=== PATIENT | male | born 1935 | race Caucasian/White ===

== ENCOUNTER 2017-01-31 08:41 | Emergency (ER) | payer MEDICARE, BC ==
--- NOTE | 2017-01-31 09:15 | EDM.PDOC ---
ED HPI GENERAL MEDICAL PROBLEM - General Chief Complaint: Cardiovascular Problem Stated Complaint: BP Time Seen by Provider: 01/31/17 08:47 Source of Information: Reports: Patient, Family, RN, RN Notes Reviewed History Limitations: Reports: No Limitations - History of Present Illness INITIAL COMMENTS - FREE TEXT/NARRATIVE: Patient presents to the ED at [facility] with concerns of elevated blood pressure. Patient states he was feeling quite dizzy this AM so he checked his blood pressure at home. Reading ranged 170's-190's. Patient states his baseline blood pressures run 130's/60's. He is currently not taking any prescription medications for blood pressure. Patient states his last yearly physical was November 2016; blood pressure at that time was at baseline. He states his only symptom is dizziness. He takes his prescription medications as directed and dose not miss any doses. Patient denies any headache. No chest pain. No SOB. No visual field disturbances. No numbness, tingling, paresthesia of any extremity. Patient states he was out recently helping family members combine wheat and feels "stuffy" and congested. He states he has not taken any OTC medications for his congestion. Onset: Today - Related Data Allergies Allergy/AdvReac Type Severity Reaction Status Date / Time No Known Allergies Allergy Verified 01/31/17 09:00 Home Meds: Home Meds Ferrous Sulfate 325 mg PO DAILY 01/31/17 [History] Levothyroxine [Levothyroxine] 112 mcg PO DAILY 01/31/17 [History] Past Medical History Endocrine/Metabolic History: Reports: Hypothyroidism Social & Family History - Family History Family Medical History: Noncontributory - Tobacco Use Smoking Status *Q: Unknown Ever Smoked - Caffeine Use Caffeine Use: Reports: None - Alcohol Use Alcohol Use History: No Alcohol Use in Last Twelve Months: No - Recreational Drug Use Recreational Drug Use: No Drug Use in Last 12 Months: No ED ROS GENERAL - Review of Systems Review Of Systems: See Below Constitutional: Denies: Fever, Chills, Weakness Respiratory: Denies: Shortness of Breath, Cough Cardiovascular: Reports: Blood Pressure Problem, Lightheadedness. Denies: Chest Pain, Edema, Palpitations GI/Abdominal: Denies: Abdominal Pain, Nausea, Vomiting Skin: Reports: No Symptoms Neurological: Reports: Dizziness. Denies: Headache, Numbness, Paresthesia, Tingling ED EXAM, GENERAL - Physical Exam Exam: See Below Exam Limited By: No Limitations General Appearance: Alert, No Apparent Distress Respiratory/Chest: No Respiratory Distress, Lungs Clear, Normal Breath Sounds Cardiovascular: Normal Peripheral Pulses, Regular Rate, Rhythm, No Murmur Peripheral Pulses: 2+: Radial (L), Radial (R) GI/Abdominal: Normal Bowel Sounds, Soft, Non-Tender Extremities: Normal Inspection Neurological: Alert, Oriented Skin Exam: Warm, Dry, Intact, Normal Color, No Rash Course - Vital Signs Last Recorded V/S: Last Vital Signs Temp 36.1 C 01/31/17 08:41 Pulse 75 01/31/17 08:41 Resp 18 01/31/17 08:41 BP 175/91 H 01/31/17 08:41 Pulse Ox 95 01/31/17 08:41 - Orders/Labs/Meds Labs: Laboratory Tests 01/31/17 01/31/17 Range/Units 09:21 09:21 WBC 4.3 (4.0-10.0) x10^3/uL RBC 4.70 (4.5-6.0) x10^6/uL Hgb 13.9 L (14.0-18.0) g/dL Hct 42.5 (40.0-52.0) % MCV 90.4 (78.0-93.0) fL MCH 29.6 (26.0-32.0) pg MCHC 32.7 (32.0-36.0) g/dL RDW Coeff of Barbara 14.0 (10.0-15.0) % Plt Count 156 (130-400) x10^3/uL Neut % (Auto) 78.2 (50.0-80.0) % Lymph % (Auto) 13.9 L (25.0-50.0) % [place] % (Auto) 6.5 (2.0-11.0) % Eos % (Auto) 0.9 (0.0-4.0) % Baso % (Auto) 0.5 (0.2-1.2) % Sodium 142 (136-145) mmol/L Potassium 4.5 (3.5-5.1) mmol/L Chloride 106 (98-107) mmol/L Carbon Dioxide 31 (21-32) mmol/L BUN 16 (7-18) mg/dL Creatinine 0.9 (0.70-1.30) mg/dL Est Cr Clr Drug Dosing TNP Estimated GFR (MDRD) > 60 Glucose 146 H (74-106) mg/dL Calcium 8.9 (8.5-10.1) mg/dL TSH, Ultra Sensitive 3.805 H (0.358-3.74) uIU/mL Departure - Departure Time of Disposition: 10:07 Disposition: Home, Self-Care 01 Reason for Transfer *Q: Other Condition: Good Clinical Impression: Elevated blood-pressure reading without diagnosis of hypertension, Hypothyroidism (acquired) Instructions: Hypertension Referrals: Codie Colvin MD [Physician] - Forms: ED Department Discharge Additional Instructions: 1. Stay well hydrated and rest 2. Avoid salty foods; salt can raise your blood pressure 3. If you start having worsening symptoms of high blood pressure, return for further workup 4. Call Dr. Colvin on Thursday and schedule a follow up appointment for your blood pressure - Problem List Review Problem List Initiated/Reviewed/Updated: Yes
[2017-01-31 09:55] LABS: CHLORIDE,CL 106 mmol/L (98-107); SODIUM,NA 142 mmol/L (136-145)
== END 2017-01-31 10:21 | disposition home or self-care (01) ==
LOC: VM.ED 08:41
DX: R03.0 Elevated blood-pressure reading, without diagnosis of hypertension (principal); E03.9 Hypothyroidism, unspecified; Z79.899 Other long term (current) drug therapy
CPT/HCPCS: 36415; 80048; 84443; 85025; 99282-GF; 99283

== ENCOUNTER 2021-07-08 07:08 | Emergency (ER) | payer MEDICARE, BC ==
[2021-07-08 08:18] LABS: PTT,PARTIAL THROMBOPLSTIN TIME 31.5 SEC (25.6-32.8)
[2021-07-08 08:28] LABS: ANION GAP 9.6 mmol/L (5-15); CHLORIDE,CL 103 mmol/L (98-107); SODIUM,NA 144 mmol/L (136-145)
[2021-07-08 09:14] LABS: CORONAVIRUS COVID-19 NAA NEGATIVE (NEGATIVE); RESPIRATORY SYNCYTIAL VIR NAA NEGATIVE (NEGATIVE)
== END 2021-07-08 09:21 | disposition home or self-care (01) ==
LOC: VM.ED 07:08
DX: I50.22 Chronic systolic (congestive) heart failure (principal); E03.9 Hypothyroidism, unspecified; I48.91 Unspecified atrial fibrillation; Z79.899 Other long term (current) drug therapy; Z20.822 Contact with and (suspected) exposure to COVID-19
CPT/HCPCS: 0241U; 36415; 71045; 80053; 83735; 83880; 84100; 84484; 85025; 85610; 85730; 93005; 99284; 99285-25

== ENCOUNTER 2021-09-16 13:31 | Inpatient (IN) | payer MEDICARE, BC ==
[2021-09-16] MEDS ORDERED: Mirtazapine 15 MG Tab PO PRN (17:00)
[2021-09-16] MEDS: Chlorhexidine Gluconate 0.12% Oral Rinse 15 ML Cup PO SCH (19:30)
[2021-09-16] MEDS: Potassium Bicarbonate/Cit Ac 10 MEQ Effervescent Tab PO SCH (19:30)
[2021-09-17] MEDS: Hypromellose 0.3% Ophth Soln 15 ML Bottle EYEBOTH PRN (03:38)
[2021-09-17] MEDS: Levothyroxine 125 MCG Tab PO SCH (06:27)
[2021-09-17] MEDS: Chlorhexidine Gluconate 0.12% Oral Rinse 15 ML Cup PO SCH ×2 (07:11→19:22)
[2021-09-17] MEDS: Amiodarone 200 MG Tab PO SCH (07:11)
[2021-09-17] MEDS: Furosemide 40 MG Tab PO SCH (07:11)
[2021-09-17] MEDS: Ferrous Sulfate 325 MG Tab PO SCH (07:11)
[2021-09-17] MEDS: Rivaroxaban 10 MG Tab PO SCH (07:11)
[2021-09-17] MEDS: Metoprolol Succinate 25 MG Tab.ER PO SCH (07:12)
[2021-09-17] MEDS: Potassium Bicarbonate/Cit Ac 10 MEQ Effervescent Tab PO SCH ×3 (07:13→19:21)
[2021-09-18] MEDS: Levothyroxine 125 MCG Tab PO SCH (06:01)
[2021-09-18] MEDS: Metoprolol Succinate 25 MG Tab.ER PO SCH (07:58)
[2021-09-18] MEDS: Potassium Bicarbonate/Cit Ac 10 MEQ Effervescent Tab PO SCH ×3 (07:58→19:21)
[2021-09-18] MEDS: Ferrous Sulfate 325 MG Tab PO SCH (07:59)
[2021-09-18] MEDS: Amiodarone 200 MG Tab PO SCH (07:59)
[2021-09-18] MEDS: Rivaroxaban 10 MG Tab PO SCH (08:00)
[2021-09-18] MEDS: Furosemide 40 MG Tab PO SCH (08:00)
[2021-09-18] MEDS: Hypromellose 0.3% Ophth Soln 15 ML Bottle EYEBOTH PRN (08:01)
[2021-09-18] MEDS: Chlorhexidine Gluconate 0.12% Oral Rinse 15 ML Cup PO SCH ×2 (08:02→19:21)
[2021-09-19] MEDS: Levothyroxine 125 MCG Tab PO SCH (06:11)
[2021-09-19] MEDS: Hypromellose 0.3% Ophth Soln 15 ML Bottle EYEBOTH PRN (06:50)
[2021-09-19] MEDS: Potassium Bicarbonate/Cit Ac 10 MEQ Effervescent Tab PO SCH ×3 (10:28→19:48)
[2021-09-19] MEDS: Metoprolol Succinate 25 MG Tab.ER PO SCH (10:29)
[2021-09-19] MEDS: Chlorhexidine Gluconate 0.12% Oral Rinse 15 ML Cup PO SCH ×2 (10:29→19:48)
[2021-09-19] MEDS: Amiodarone 200 MG Tab PO SCH (10:29)
[2021-09-19] MEDS: Ferrous Sulfate 325 MG Tab PO SCH (10:29)
[2021-09-19] MEDS: Furosemide 40 MG Tab PO SCH (10:30)
[2021-09-19] MEDS: Rivaroxaban 10 MG Tab PO SCH (10:31)
[2021-09-20] MEDS: Levothyroxine 125 MCG Tab PO SCH (06:24)
[2021-09-20] MEDS: Amiodarone 200 MG Tab PO SCH (07:47)
[2021-09-20] MEDS: Metoprolol Succinate 25 MG Tab.ER PO SCH (07:47)
[2021-09-20] MEDS: Rivaroxaban 10 MG Tab PO SCH (07:47)
[2021-09-20] MEDS: Potassium Bicarbonate/Cit Ac 10 MEQ Effervescent Tab PO SCH ×2 (07:47→11:30)
[2021-09-20] MEDS: Furosemide 40 MG Tab PO SCH (07:47)
[2021-09-20] MEDS: Ferrous Sulfate 325 MG Tab PO SCH (07:47)
[2021-09-20] MEDS: Chlorhexidine Gluconate 0.12% Oral Rinse 15 ML Cup PO SCH (07:51)
== END 2021-09-20 12:05 | disposition home or self-care (01) | DRG 948 ==
LOC: VM.MS 13:31
PROVIDERS: ADMIT Family Medicine; ATTEND Family Medicine
DX: R53.81 Other malaise (principal); I42.8 Other cardiomyopathies; I50.42 Chronic combined systolic (congestive) and diastolic (congestive) heart failure; I11.0 Hypertensive heart disease with heart failure; I48.91 Unspecified atrial fibrillation; E03.9 Hypothyroidism, unspecified; I34.0 Nonrheumatic mitral (valve) insufficiency; D64.9 Anemia, unspecified; E87.6 Hypokalemia; C06.9 Malignant neoplasm of mouth, unspecified; E83.42 Hypomagnesemia; Z79.890 Hormone replacement therapy; Z79.899 Other long term (current) drug therapy
CPT/HCPCS: 97110-GP; 97116-GP; A9270-GY

== ENCOUNTER 2021-09-26 17:13 | Observation (INO) | payer MEDICARE, BC ==
[2021-09-26 18:12] LABS: ANION GAP 8.9 mmol/L (5-15); CHLORIDE,CL 103 mmol/L (98-107); SODIUM,NA 143 mmol/L (136-145)
[2021-09-26 18:40] LABS: CORONAVIRUS COVID-19 NAA NEGATIVE (NEGATIVE)
[2021-09-26 18:41] LABS: RESPIRATORY SYNCYTIAL VIR NAA NEGATIVE (NEGATIVE)
[2021-09-26] MEDS ORDERED: Hypromellose 0.3% Ophth Soln 15 ML Bottle EYEBOTH PRN (19:56)
[2021-09-26] MEDS ORDERED: Mirtazapine 15 MG Tab PO PRN (19:56)
[2021-09-26] MEDS ORDERED: Potassium Chloride 20 MEQ Tab.ER PO SCH (20:00)
[2021-09-26] MEDS: Amiodarone 200 MG Tab PO SCH (20:33)
[2021-09-26] MEDS: Chlorhexidine Gluconate 0.12% Oral Rinse 15 ML Cup PO SCH (20:34)
[2021-09-27] MEDS: Sodium Chloride 0.9% 10 ML Syringe FLUSH PRN ×2 (06:11→06:12)
[2021-09-27 06:56] LABS: CHLORIDE,CL 105 mmol/L (98-107); SODIUM,NA 145 mmol/L (136-145)
[2021-09-27] MEDS ORDERED: Levothyroxine 125 MCG Tab PO SCH (07:00)
[2021-09-27 07:01] LABS: ANION GAP 9.7 mmol/L (5-15)
[2021-09-27] MEDS ORDERED: Ferrous Sulfate 325 MG Tab PO SCH (08:00)
[2021-09-27] MEDS ORDERED: Metoprolol Succinate 25 MG Tab.ER PO SCH (08:00)
[2021-09-27] MEDS ORDERED: Potassium Bicarbonate/Cit Ac 10 MEQ Effervescent Tab PO SCH (08:00)
[2021-09-27] MEDS ORDERED: Rivaroxaban 10 MG Tab PO SCH (08:00)
[2021-09-27] MEDS ORDERED: Furosemide 40 MG Tab PO SCH (08:00)
[2021-09-27] MEDS: Chlorhexidine Gluconate 0.12% Oral Rinse 15 ML Cup PO SCH (08:30)
[2021-09-27] MEDS ORDERED: Metoprolol Succinate 25 MG Tab.ER PO ONE (08:30)
[2021-09-27] MEDS: Amiodarone 200 MG Tab PO SCH (08:31)
[2021-09-28] MEDS ORDERED: Levothyroxine 75 MCG Tab PO SCH (07:00)
[2021-09-28] MEDS ORDERED: Levothyroxine 125 MCG Tab PO SCH (07:00)
[2021-09-28] MEDS ORDERED: Metoprolol Succinate 25 MG Tab.ER PO SCH (08:00)
== END 2021-09-27 09:33 | disposition swing bed (61) ==
LOC: VM.ED 17:13 → VM.MS 18:57
PROVIDERS: ADMIT Physician Assistant; ATTEND Family Medicine
DX: R53.1 Weakness (principal); R53.81 Other malaise; E43 Unspecified severe protein-calorie malnutrition; K59.00 Constipation, unspecified; E87.6 Hypokalemia; I11.0 Hypertensive heart disease with heart failure; E83.42 Hypomagnesemia; I50.43 Acute on chronic combined systolic (congestive) and diastolic (congestive) heart failure; C61 Malignant neoplasm of prostate; I47.2 Ventricular tachycardia; D64.9 Anemia, unspecified; F41.9 Anxiety disorder, unspecified; E03.9 Hypothyroidism, unspecified; I48.91 Unspecified atrial fibrillation; E78.00 Pure hypercholesterolemia, unspecified; Z98.890 Other specified postprocedural states; Z79.890 Hormone replacement therapy; Z79.01 Long term (current) use of anticoagulants; Z79.899 Other long term (current) drug therapy; Z20.822 Contact with and (suspected) exposure to COVID-19
CPT/HCPCS: 0241U; 36415; 70450; 71045; 80048; 80053; 83605; 83735; 83880; 84100; 84436; 84443; 84481; 84484; 85025; 85610; 85730; 87040; 93005; 99285-25; A9270-GY; G0378; J3490

== ENCOUNTER 2021-09-27 09:25 | Inpatient (IN) | payer MEDICARE, BC ==
[2021-09-27] MEDS ORDERED: Mirtazapine 15 MG Tab PO PRN (09:41)
[2021-09-27] MEDS ORDERED: Sodium Chloride 0.9% 10 ML Syringe FLUSH PRN ×2 (09:41)
[2021-09-27] MEDS: Potassium Bicarbonate/Cit Ac 10 MEQ Effervescent Tab PO SCH ×2 (13:43→17:56)
[2021-09-27] MEDS: Chlorhexidine Gluconate 0.12% Oral Rinse 15 ML Cup PO SCH (19:24)
[2021-09-28] MEDS: Levothyroxine 125 MCG Tab PO SCH (06:06)
[2021-09-28] MEDS: Hypromellose 0.3% Ophth Soln 15 ML Bottle EYEBOTH PRN (06:20)
[2021-09-28] MEDS: Potassium Bicarbonate/Cit Ac 10 MEQ Effervescent Tab PO SCH ×3 (08:20→18:19)
[2021-09-28] MEDS: Furosemide 40 MG Tab PO SCH (08:21)
[2021-09-28] MEDS: Metoprolol Succinate 25 MG Tab.ER PO SCH (08:21)
[2021-09-28] MEDS: Chlorhexidine Gluconate 0.12% Oral Rinse 15 ML Cup PO SCH ×2 (08:21→19:33)
[2021-09-28] MEDS: Ferrous Sulfate 325 MG Tab PO SCH (08:22)
[2021-09-28] MEDS: Rivaroxaban 10 MG Tab PO SCH (08:22)
[2021-09-28] MEDS: Amiodarone 200 MG Tab PO SCH (08:22)
[2021-09-29] MEDS: Levothyroxine 125 MCG Tab PO SCH (06:12)
[2021-09-29] MEDS: Potassium Bicarbonate/Cit Ac 10 MEQ Effervescent Tab PO SCH ×3 (08:08→19:00)
[2021-09-29] MEDS: Amiodarone 200 MG Tab PO SCH (08:12)
[2021-09-29] MEDS: Rivaroxaban 10 MG Tab PO SCH (08:12)
[2021-09-29] MEDS: Furosemide 40 MG Tab PO SCH (08:12)
[2021-09-29] MEDS: Ferrous Sulfate 325 MG Tab PO SCH (08:12)
[2021-09-29] MEDS: Metoprolol Succinate 25 MG Tab.ER PO SCH (08:12)
[2021-09-29] MEDS: Chlorhexidine Gluconate 0.12% Oral Rinse 15 ML Cup PO SCH ×2 (08:13→19:00)
[2021-09-30] MEDS: Levothyroxine 125 MCG Tab PO SCH (06:01)
[2021-09-30] MEDS: Amiodarone 200 MG Tab PO SCH (07:59)
[2021-09-30] MEDS: Potassium Bicarbonate/Cit Ac 10 MEQ Effervescent Tab PO SCH ×3 (07:59→18:40)
[2021-09-30] MEDS: Ferrous Sulfate 325 MG Tab PO SCH (07:59)
[2021-09-30] MEDS: Rivaroxaban 10 MG Tab PO SCH (07:59)
[2021-09-30] MEDS: Metoprolol Succinate 25 MG Tab.ER PO SCH (07:59)
[2021-09-30] MEDS: Chlorhexidine Gluconate 0.12% Oral Rinse 15 ML Cup PO SCH ×2 (08:00→19:46)
[2021-09-30] MEDS: Furosemide 40 MG Tab PO SCH (08:00)
[2021-10-01] MEDS: Levothyroxine 125 MCG Tab PO SCH (06:01)
[2021-10-01] MEDS: Hypromellose 0.3% Ophth Soln 15 ML Bottle EYEBOTH PRN (08:48)
[2021-10-01] MEDS: Potassium Bicarbonate/Cit Ac 10 MEQ Effervescent Tab PO SCH ×3 (08:48→18:30)
[2021-10-01] MEDS: Chlorhexidine Gluconate 0.12% Oral Rinse 15 ML Cup PO SCH ×2 (08:48→18:59)
[2021-10-01] MEDS: Furosemide 40 MG Tab PO SCH (08:48)
[2021-10-01] MEDS: Metoprolol Succinate 25 MG Tab.ER PO SCH (08:48)
[2021-10-01] MEDS: Rivaroxaban 10 MG Tab PO SCH (08:49)
[2021-10-01] MEDS: Amiodarone 200 MG Tab PO SCH (08:49)
[2021-10-01] MEDS: Ferrous Sulfate 325 MG Tab PO SCH (08:49)
[2021-10-02] MEDS: Levothyroxine 125 MCG Tab PO SCH (06:44)
[2021-10-02] MEDS: Chlorhexidine Gluconate 0.12% Oral Rinse 15 ML Cup PO SCH ×2 (08:12→20:05)
[2021-10-02] MEDS: Metoprolol Succinate 25 MG Tab.ER PO SCH (08:12)
[2021-10-02] MEDS: Potassium Bicarbonate/Cit Ac 10 MEQ Effervescent Tab PO SCH ×3 (08:12→17:55)
[2021-10-02] MEDS: Ferrous Sulfate 325 MG Tab PO SCH (08:13)
[2021-10-02] MEDS: Furosemide 40 MG Tab PO SCH (08:13)
[2021-10-02] MEDS: Amiodarone 200 MG Tab PO SCH (08:13)
[2021-10-02] MEDS: Rivaroxaban 10 MG Tab PO SCH (08:13)
[2021-10-03] MEDS: Levothyroxine 125 MCG Tab PO SCH (06:50)
[2021-10-03] MEDS: Melatonin 3 MG Tab PO SCH (06:56)
[2021-10-03] MEDS: Ferrous Sulfate 325 MG Tab PO SCH (08:41)
[2021-10-03] MEDS: Amiodarone 200 MG Tab PO SCH (08:41)
[2021-10-03] MEDS: Rivaroxaban 10 MG Tab PO SCH (08:41)
[2021-10-03] MEDS: Furosemide 40 MG Tab PO SCH (08:41)
[2021-10-03] MEDS: Potassium Bicarbonate/Cit Ac 10 MEQ Effervescent Tab PO SCH ×3 (08:41→18:11)
[2021-10-03] MEDS: Metoprolol Succinate 25 MG Tab.ER PO SCH (08:42)
[2021-10-03] MEDS: Chlorhexidine Gluconate 0.12% Oral Rinse 15 ML Cup PO SCH ×2 (08:42→20:55)
[2021-10-04] MEDS: Melatonin 3 MG Tab PO SCH ×2 (07:01→19:49)
[2021-10-04] MEDS: Levothyroxine 125 MCG Tab PO SCH (07:02)
[2021-10-04] MEDS: Potassium Bicarbonate/Cit Ac 10 MEQ Effervescent Tab PO SCH ×3 (08:36→18:44)
[2021-10-04] MEDS: Furosemide 40 MG Tab PO SCH (08:37)
[2021-10-04] MEDS: Metoprolol Succinate 25 MG Tab.ER PO SCH (08:37)
[2021-10-04] MEDS: Rivaroxaban 10 MG Tab PO SCH (08:37)
[2021-10-04] MEDS: Amiodarone 200 MG Tab PO SCH (08:37)
[2021-10-04] MEDS: Ferrous Sulfate 325 MG Tab PO SCH (08:37)
[2021-10-04] MEDS: Chlorhexidine Gluconate 0.12% Oral Rinse 15 ML Cup PO SCH ×2 (08:38→19:49)
[2021-10-05] MEDS: Levothyroxine 125 MCG Tab PO SCH (06:15)
[2021-10-05] MEDS: Rivaroxaban 10 MG Tab PO SCH (08:42)
[2021-10-05] MEDS: Potassium Bicarbonate/Cit Ac 10 MEQ Effervescent Tab PO SCH ×3 (08:42→18:53)
[2021-10-05] MEDS: Chlorhexidine Gluconate 0.12% Oral Rinse 15 ML Cup PO SCH ×2 (08:42→19:11)
[2021-10-05] MEDS: Metoprolol Succinate 25 MG Tab.ER PO SCH (08:43)
[2021-10-05] MEDS: Furosemide 40 MG Tab PO SCH (08:43)
[2021-10-05] MEDS: Amiodarone 200 MG Tab PO SCH (08:43)
[2021-10-05] MEDS: Ferrous Sulfate 325 MG Tab PO SCH (08:43)
[2021-10-05] MEDS: Melatonin 3 MG Tab PO SCH (19:11)
[2021-10-06] MEDS: Levothyroxine 125 MCG Tab PO SCH (06:51)
[2021-10-06] MEDS: Chlorhexidine Gluconate 0.12% Oral Rinse 15 ML Cup PO SCH ×2 (08:06→19:36)
[2021-10-06] MEDS: Rivaroxaban 10 MG Tab PO SCH (08:06)
[2021-10-06] MEDS: Metoprolol Succinate 25 MG Tab.ER PO SCH (08:06)
[2021-10-06] MEDS: Potassium Bicarbonate/Cit Ac 10 MEQ Effervescent Tab PO SCH ×3 (08:06→18:40)
[2021-10-06] MEDS: Furosemide 40 MG Tab PO SCH (08:06)
[2021-10-06] MEDS: Amiodarone 200 MG Tab PO SCH (08:07)
[2021-10-06] MEDS: Ferrous Sulfate 325 MG Tab PO SCH (08:07)
[2021-10-06] MEDS: Melatonin 3 MG Tab PO SCH (19:37)
[2021-10-07] MEDS: Levothyroxine 125 MCG Tab PO SCH (06:04)
[2021-10-07] MEDS: Potassium Bicarbonate/Cit Ac 10 MEQ Effervescent Tab PO SCH ×13 (07:54→19:30)
[2021-10-07] MEDS: Metoprolol Succinate 25 MG Tab.ER PO SCH ×6 (07:55→16:27)
[2021-10-07] MEDS: Furosemide 40 MG Tab PO SCH ×8 (07:55→16:28)
[2021-10-07] MEDS: Amiodarone 200 MG Tab PO SCH ×8 (07:55→16:29)
[2021-10-07] MEDS: Rivaroxaban 10 MG Tab PO SCH ×7 (07:55→16:27)
[2021-10-07] MEDS: Chlorhexidine Gluconate 0.12% Oral Rinse 15 ML Cup PO SCH ×9 (07:55→22:24)
[2021-10-07] MEDS: Ferrous Sulfate 325 MG Tab PO SCH ×6 (07:56→16:28)
[2021-10-07] MEDS: Melatonin 3 MG Tab PO SCH ×4 (14:50→22:24)
[2021-10-07] MEDS ORDERED: Bisacodyl 10 MG Supp RECTAL ONE (15:22)
[2021-10-07] MEDS ORDERED: Polyethylene Glycol 3350 Powder 17 GM Packet PO ONE (17:42)
[2021-10-08 07:10] LABS: CHLORIDE,CL 103 mmol/L (98-107); SODIUM,NA 144 mmol/L (136-145)
[2021-10-08 07:11] LABS: ANION GAP 7.6 mmol/L (5-15)
[2021-10-08] MEDS: Levothyroxine 125 MCG Tab PO SCH (07:35)
[2021-10-08] MEDS: Rivaroxaban 10 MG Tab PO SCH (08:18)
[2021-10-08] MEDS: Potassium Bicarbonate/Cit Ac 10 MEQ Effervescent Tab PO SCH ×3 (08:23→17:30)
[2021-10-08] MEDS: Chlorhexidine Gluconate 0.12% Oral Rinse 15 ML Cup PO SCH ×2 (08:24→21:55)
[2021-10-08] MEDS: Ferrous Sulfate 325 MG Tab PO SCH (08:24)
[2021-10-08] MEDS: Metoprolol Succinate 25 MG Tab.ER PO SCH (10:09)
[2021-10-08] MEDS: Amiodarone 200 MG Tab PO SCH (10:10)
[2021-10-08] MEDS: Furosemide 40 MG Tab PO SCH (10:10)
[2021-10-08] MEDS: Melatonin 3 MG Tab PO SCH (21:55)
[2021-10-09] MEDS: Levothyroxine 125 MCG Tab PO SCH (06:41)
[2021-10-09] MEDS: Chlorhexidine Gluconate 0.12% Oral Rinse 15 ML Cup PO SCH (09:27)
[2021-10-09] MEDS: Amiodarone 200 MG Tab PO SCH (09:27)
[2021-10-09] MEDS: Furosemide 40 MG Tab PO SCH (09:27)
[2021-10-09] MEDS: Potassium Bicarbonate/Cit Ac 10 MEQ Effervescent Tab PO SCH ×3 (09:27→21:03)
[2021-10-09] MEDS: Rivaroxaban 10 MG Tab PO SCH (09:28)
[2021-10-09] MEDS: Ferrous Sulfate 325 MG Tab PO SCH (09:28)
[2021-10-09] MEDS: Metoprolol Succinate 25 MG Tab.ER PO SCH (09:28)
[2021-10-10] MEDS: Melatonin 3 MG Tab PO SCH ×3 (05:54→21:46)
[2021-10-10] MEDS: Chlorhexidine Gluconate 0.12% Oral Rinse 15 ML Cup PO SCH ×4 (05:54→21:46)
[2021-10-10] MEDS: Levothyroxine 125 MCG Tab PO SCH (06:44)
[2021-10-10] MEDS: Furosemide 40 MG Tab PO SCH (08:19)
[2021-10-10] MEDS: Ferrous Sulfate 325 MG Tab PO SCH (08:20)
[2021-10-10] MEDS: Rivaroxaban 10 MG Tab PO SCH (08:20)
[2021-10-10] MEDS: Metoprolol Succinate 25 MG Tab.ER PO SCH (08:20)
[2021-10-10] MEDS: Amiodarone 200 MG Tab PO SCH (08:20)
[2021-10-10] MEDS: Hypromellose 0.3% Ophth Soln 15 ML Bottle EYEBOTH PRN (08:21)
[2021-10-10] MEDS: Potassium Bicarbonate/Cit Ac 10 MEQ Effervescent Tab PO SCH ×3 (08:21→17:22)
[2021-10-11] MEDS: Levothyroxine 125 MCG Tab PO SCH (06:58)
[2021-10-11] MEDS: Metoprolol Succinate 25 MG Tab.ER PO SCH ×2 (09:25→09:40)
[2021-10-11] MEDS: Ferrous Sulfate 325 MG Tab PO SCH (09:28)
[2021-10-11] MEDS: Potassium Bicarbonate/Cit Ac 10 MEQ Effervescent Tab PO SCH ×3 (09:29→17:22)
[2021-10-11] MEDS: Amiodarone 200 MG Tab PO SCH (09:30)
[2021-10-11] MEDS: Furosemide 40 MG Tab PO SCH (09:31)
[2021-10-11] MEDS: Rivaroxaban 10 MG Tab PO SCH (09:31)
[2021-10-11] MEDS: Chlorhexidine Gluconate 0.12% Oral Rinse 15 ML Cup PO SCH ×2 (09:31→21:23)
[2021-10-11] MEDS ORDERED: Polyethylene Glycol 3350 Powder 17 GM Packet PO ONE (09:56)
[2021-10-11] MEDS: Melatonin 3 MG Tab PO SCH (21:31)
[2021-10-12] MEDS: Levothyroxine 125 MCG Tab PO SCH (06:22)
[2021-10-12] MEDS: Hypromellose 0.3% Ophth Soln 15 ML Bottle EYEBOTH PRN (08:53)
[2021-10-12] MEDS: Rivaroxaban 10 MG Tab PO SCH (08:53)
[2021-10-12] MEDS: Chlorhexidine Gluconate 0.12% Oral Rinse 15 ML Cup PO SCH ×2 (08:53→20:22)
[2021-10-12] MEDS: Metoprolol Succinate 25 MG Tab.ER PO SCH (08:54)
[2021-10-12] MEDS: Ferrous Sulfate 325 MG Tab PO SCH (08:54)
[2021-10-12] MEDS: Furosemide 40 MG Tab PO SCH (08:55)
[2021-10-12] MEDS: Potassium Bicarbonate/Cit Ac 10 MEQ Effervescent Tab PO SCH ×3 (10:08→18:57)
[2021-10-12] MEDS: Polyethylene Glycol 3350 Powder 17 GM Packet PO SCH (10:08)
[2021-10-12] MEDS: Amiodarone 200 MG Tab PO SCH (10:08)
[2021-10-12] MEDS: Melatonin 3 MG Tab PO SCH (20:22)
[2021-10-13] MEDS: Levothyroxine 125 MCG Tab PO SCH (06:37)
[2021-10-13] MEDS: Rivaroxaban 10 MG Tab PO SCH (10:43)
[2021-10-13] MEDS: Amiodarone 200 MG Tab PO SCH (10:43)
[2021-10-13] MEDS: Ferrous Sulfate 325 MG Tab PO SCH (10:44)
[2021-10-13] MEDS: Furosemide 40 MG Tab PO SCH (10:45)
[2021-10-13] MEDS: Chlorhexidine Gluconate 0.12% Oral Rinse 15 ML Cup PO SCH ×2 (10:45→19:59)
[2021-10-13] MEDS: Metoprolol Succinate 25 MG Tab.ER PO SCH (13:41)
[2021-10-13] MEDS: Polyethylene Glycol 3350 Powder 17 GM Packet PO SCH (13:44)
[2021-10-13] MEDS: Potassium Bicarbonate/Cit Ac 10 MEQ Effervescent Tab PO SCH ×2 (16:31→19:54)
[2021-10-13] MEDS: Melatonin 3 MG Tab PO SCH (19:59)
[2021-10-14] MEDS: Levothyroxine 125 MCG Tab PO SCH (06:09)
[2021-10-14] MEDS: Metoprolol Succinate 25 MG Tab.ER PO SCH (10:05)
[2021-10-14] MEDS: Chlorhexidine Gluconate 0.12% Oral Rinse 15 ML Cup PO SCH ×2 (10:05→21:18)
[2021-10-14] MEDS: Rivaroxaban 10 MG Tab PO SCH (10:06)
[2021-10-14] MEDS: Furosemide 40 MG Tab PO SCH (10:06)
[2021-10-14] MEDS: Potassium Bicarbonate/Cit Ac 10 MEQ Effervescent Tab PO SCH ×3 (10:06→17:53)
[2021-10-14] MEDS: Ferrous Sulfate 325 MG Tab PO SCH (10:06)
[2021-10-14] MEDS: Amiodarone 200 MG Tab PO SCH (10:06)
[2021-10-14] MEDS: Polyethylene Glycol 3350 Powder 17 GM Packet PO SCH (10:07)
[2021-10-14] MEDS: Melatonin 3 MG Tab PO SCH (21:18)
[2021-10-15] MEDS: Levothyroxine 125 MCG Tab PO SCH (06:24)
[2021-10-15] MEDS: Potassium Bicarbonate/Cit Ac 10 MEQ Effervescent Tab PO SCH ×3 (08:31→18:37)
[2021-10-15] MEDS: Chlorhexidine Gluconate 0.12% Oral Rinse 15 ML Cup PO SCH ×2 (08:31→20:54)
[2021-10-15] MEDS: Metoprolol Succinate 25 MG Tab.ER PO SCH (08:31)
[2021-10-15] MEDS: Rivaroxaban 10 MG Tab PO SCH (08:31)
[2021-10-15] MEDS: Furosemide 40 MG Tab PO SCH (08:32)
[2021-10-15] MEDS: Amiodarone 200 MG Tab PO SCH (08:33)
[2021-10-15] MEDS: Ferrous Sulfate 325 MG Tab PO SCH (08:33)
[2021-10-15] MEDS: Polyethylene Glycol 3350 Powder 17 GM Packet PO SCH (08:36)
[2021-10-15] MEDS ORDERED: Polyethylene Glycol 3350 Powder 17 GM Packet PO ONE (12:00)
[2021-10-15] MEDS ORDERED: traMADol 50 MG Tab PO PRN (19:45)
[2021-10-15] MEDS ORDERED: Simethicone 80 MG Tab.Chew PO PRN (19:47)
[2021-10-15] MEDS: Melatonin 3 MG Tab PO SCH (20:54)
[2021-10-15] MEDS ORDERED: HYDROmorphone 0.5 MG/0.5 ML Syringe IVPUSH ONE (20:58)
[2021-10-16] MEDS: Levothyroxine 125 MCG Tab PO SCH (06:13)
[2021-10-16] MEDS: Ferrous Sulfate 325 MG Tab PO SCH (08:04)
[2021-10-16] MEDS: Rivaroxaban 10 MG Tab PO SCH (08:04)
[2021-10-16] MEDS: Chlorhexidine Gluconate 0.12% Oral Rinse 15 ML Cup PO SCH ×2 (08:04→20:31)
[2021-10-16] MEDS: Furosemide 40 MG Tab PO SCH (08:04)
[2021-10-16] MEDS: Metoprolol Succinate 25 MG Tab.ER PO SCH (08:14)
[2021-10-16] MEDS: Amiodarone 200 MG Tab PO SCH (08:14)
[2021-10-16] MEDS ORDERED: Bisacodyl 10 MG Supp RECTAL ONE (08:37)
[2021-10-16] MEDS ORDERED: Polyethylene Glycol 3350 Powder 17 GM Packet PO SCH (09:00)
[2021-10-16] MEDS: Potassium Bicarbonate/Cit Ac 10 MEQ Effervescent Tab PO SCH ×3 (09:28→17:01)
[2021-10-16 12:57] LABS: CHLORIDE,CL 101 mmol/L (98-107); SODIUM,NA 146 mmol/L (136-145)
[2021-10-16 13:00] LABS: ANION GAP 12.3 mmol/L (5-15)
[2021-10-16] MEDS: Melatonin 3 MG Tab PO SCH (20:31)
[2021-10-17] MEDS: Levothyroxine 125 MCG Tab PO SCH (06:20)
[2021-10-17] MEDS: Furosemide 40 MG Tab PO SCH (08:53)
[2021-10-17] MEDS: Ferrous Sulfate 325 MG Tab PO SCH (08:53)
[2021-10-17] MEDS: Rivaroxaban 10 MG Tab PO SCH (08:53)
[2021-10-17] MEDS: Metoprolol Succinate 25 MG Tab.ER PO SCH (08:54)
[2021-10-17] MEDS: Chlorhexidine Gluconate 0.12% Oral Rinse 15 ML Cup PO SCH ×2 (08:54→20:19)
[2021-10-17] MEDS: Amiodarone 200 MG Tab PO SCH (08:57)
[2021-10-17] MEDS: Potassium Bicarbonate/Cit Ac 10 MEQ Effervescent Tab PO SCH ×3 (08:58→17:13)
[2021-10-17] MEDS: Polyethylene Glycol 3350 Powder 17 GM Packet PO SCH (09:14)
[2021-10-17] MEDS: Melatonin 3 MG Tab PO SCH (20:19)
[2021-10-18] MEDS: Levothyroxine 125 MCG Tab PO SCH (06:00)
[2021-10-18] MEDS: Chlorhexidine Gluconate 0.12% Oral Rinse 15 ML Cup PO SCH (08:26)
[2021-10-18] MEDS: Polyethylene Glycol 3350 Powder 17 GM Packet PO SCH (08:26)
[2021-10-18] MEDS: Ferrous Sulfate 325 MG Tab PO SCH (08:26)
[2021-10-18] MEDS: Amiodarone 200 MG Tab PO SCH (08:26)
[2021-10-18] MEDS: Metoprolol Succinate 25 MG Tab.ER PO SCH (08:26)
[2021-10-18] MEDS: Furosemide 40 MG Tab PO SCH (08:26)
[2021-10-18] MEDS: Rivaroxaban 10 MG Tab PO SCH (08:26)
[2021-10-18] MEDS: Potassium Bicarbonate/Cit Ac 10 MEQ Effervescent Tab PO SCH (09:30)
== END 2021-10-18 09:40 | DRG 947 ==
LOC: VM.MS 09:34
PROVIDERS: ADMIT Family Medicine; ATTEND Family Medicine
DX: R53.81 Other malaise (principal); E43 Unspecified severe protein-calorie malnutrition; I50.43 Acute on chronic combined systolic (congestive) and diastolic (congestive) heart failure; I48.20 Chronic atrial fibrillation, unspecified; I47.2 Ventricular tachycardia; E87.6 Hypokalemia; Z20.822 Contact with and (suspected) exposure to COVID-19; Z66 Do not resuscitate; E83.42 Hypomagnesemia; E03.9 Hypothyroidism, unspecified; K59.00 Constipation, unspecified; F41.9 Anxiety disorder, unspecified; I34.0 Nonrheumatic mitral (valve) insufficiency; E78.5 Hyperlipidemia, unspecified; C06.9 Malignant neoplasm of mouth, unspecified; Z68.1 Body mass index [BMI] 19.9 or less, adult
CPT/HCPCS: 36415; 80048; 80053; 81003; 83735; 85025; 92610-GN; 97110-GO; 97110-GP; 97116-GP; 97163-GP; 97165-GO; A9270-GY; J1642; J3490; U0002